=== PATIENT | female | born 1945 | race Two or more races ===

== ENCOUNTER 2019-01-02 11:53 | Inpatient (IN) | payer OTHER ==
[~2019-01-02] VITALS: Ht 167.6 cm; Wt 59.0 kg
[2019-01-16] MEDS ORDERED: ZETIA10 MG (13:12)
[2019-01-16] MEDS ORDERED: B COMPLEX1 EACH (13:12)
[2019-01-16] MEDS ORDERED: CALCIUM 600 WI1 EACH (13:14)
[2019-01-16] MEDS ORDERED: [UNRECOGNIZED DRUG - OTHER] (13:14)
[2019-01-16] MEDS ORDERED: FLAXSEED1000 MG (13:15)
[2019-01-16] MEDS ORDERED: MAGNESIUM200 MG (13:15)
[2019-01-16] MEDS ORDERED: LOVAZA1 GM (13:15)
[2019-01-16] MEDS ORDERED: CIDAFLEX TABLE1 EACH (13:15)
[2019-01-16] MEDS ORDERED: OCUVITE LUTEIN1 EAC1 (13:16)
[2019-01-16] MEDS ORDERED: MILK THISTLE500 MG (13:16)
[2019-01-16] MEDS ORDERED: MIRALAX17 GM (13:16)
[2019-01-16] MEDS ORDERED: PROBIOTIC1 EAC2 (13:17)
[2019-01-16] MEDS ORDERED: ALDACTONE25 MG (13:17)
[2019-01-16] MEDS ORDERED: PROTECT CARDIO1 EAC1 (13:17)
[2019-01-16] MEDS ORDERED: ZINC GLUCONATE100 MG (13:17)
== END 2019-01-24 18:56 | disposition home or self-care (01) | DRG 330 ==
LOC: SURH 01-22 06:30 → O/R 01-22 06:30 → SURG 01-22 10:15 → SURH 01-22 19:00
PROVIDERS: ADMIT Colon & Rectal Surgery
PROC: 07TB4ZZ Resection of Mesenteric Lymphatic, Percutaneous Endoscopic Approach (ICD-10-PCS; 2019-01-22)
PROC: 0DTF4ZZ Resection of Right Large Intestine, Percutaneous Endoscopic Approach (ICD-10-PCS; principal; 2019-01-22 12:15)
DX: C18.0 Malignant neoplasm of cecum (principal); K92.1 Melena

== ENCOUNTER 2020-02-13 07:21 | Day surgery (SDC) | payer OTHER ==
[~2020-02-13 07:21] MED LIST: ALDACTONE25 MG; B COMPLEX1 EACH; CALCIUM 600 WI1 EACH; CIDAFLEX TABLE1 EACH; FLAXSEED1000 MG; LOVAZA1 GM; MAGNESIUM200 MG; MILK THISTLE500 MG; MIRALAX17 GM; OCUVITE LUTEIN1 EAC1; PROBIOTIC1 EAC2; PROTECT CARDIO1 EAC1; ZETIA10 MG; ZINC GLUCONATE100 MG; [UNRECOGNIZED DRUG - OTHER]
== END 2020-02-13 13:30 | disposition home or self-care (01) ==
LOC: AMB-ENDOS 07:21
PROVIDERS: ATTEND Colon & Rectal Surgery
DX: K62.89 Other specified diseases of anus and rectum (principal); Z20.828 Contact with and (suspected) exposure to other viral communicable diseases; K64.0 First degree hemorrhoids